=== PATIENT | male | born 1965 | race Caucasian/White ===

== ENCOUNTER → 2017-12-24 | Outpatient (CLI) | payer OTHER ==
--- NOTE | 2017-12-24 13:16 | CONS ---
CONSULTATION DATE OF SERVICE: 12/24/2017 A 52-year-old gentleman had been evaluated in the sleep center for possible obstructive sleep apnea-hypopnea syndrome. HISTORY OF PRESENT ILLNESS/SLEEP WAKE EVALUATION: Patient sleep schedule from 10 p.m. to 8 a.m. basically 7 days a week. No problems with falling asleep, although he has TV in bedroom. He sleeps in different positions with his with loud snoring and witnessed episodes of stopped breathing during the sleep. Awakening from sleep with gasping for air up to 2 times with 2 episodes of nocturia. He also has positive history of jerking movements while he fell asleep. No history of hypnagogic hallucinations, sleep paralysis or cataplexy. During the day, patient wakes up tired, feels sleepy, has difficulties to pay attention, has problem with memory, concentration, irritability, depression. [place] Sleepiness Scale significantly increased to 11. PAST MEDICAL HISTORY: Positive for hypothyroidism, back problems, nasal polyps in the past, not recently. PAST SURGICAL HISTORY: Left shoulder surgery, left low leg surgery, 2 hernia surgeries. MEDICATIONS: Levothyroxine. SOCIAL HISTORY: Negative for smoking or using alcohol. FAMILY HISTORY: Heart problems, stroke, sinus problems, snoring, thyroid problems. REVIEW OF SYSTEMS: Awakenings from sleep, feeling sleepy and tired during the day. No fevers. No double vision. No recent chest pain. No shortness of breath. No abdominal pain. No bleeding episodes. No blood in urine. No seizure episodes. PHYSICAL EXAM: During physical exam, gentleman without distress. VITAL SIGNS: BP 129/81, HR 64, RR 16, height 5 feet 11 inches, weight 216, BMI 30.1, temperature 98.1, oxygen saturation room air 96%. HEENT: PERRLA, EOMI. Oropharynx moderately low position of soft palate. A small oropharyngeal air space. Slight restriction of nasal breathing. NECK: Supple, no JVD. Thyroid is not palpable. LUNGS: Clear to percussion and to auscultation. Good air exchange. No wheezing or rhonchi. HEART: S1, S2 regular. No murmurs, gallops, or rubs. ABDOMEN: Slightly obese. EXTREMITIES: No clubbing or cyanosis. PHYSICIAN IN PRIVATE PRACTICE: Awake, alert, and oriented X3. Cranial nerves 2 to 7 intact. There is no fasciculation or atrophy noted. No focal deficits observed. IMPRESSION: 1. Snoring, witnessed episodes of stopped breathing during the sleep, small oropharyngeal air space, wide neck 16-1/2 inches, obstructive sleep apnea-hypopnea syndrome. 2. Mild obesity, body mass index 30.1. 3. Hypothyroidism. 4. Back problems. 5. Status post 2 hernia repairs. 6. Status post left shoulder surgery. 7. Status post left lower leg surgery. 8. History of nasal polyps in the past, not recently. PLAN: 1. Polysomnography for evaluation of patient's breathing during sleep. 2. CPAP/BiPAP titration if sleep study confirms obstructive sleep apnea-hypopnea syndrome. 3. Preferable position during sleep on the side. 4. No driving if patient feels any sleepiness. Patient is aware of civil and criminal liability for unsafe driving. 5. I will see patient for follow up visit to explain results of testing and following plan. Thank you very much for referring this patient for consultation. Sincerely, Pierre Suero MD, PhD, FAASM Diplomat of [employer] Insurance Verifier of [facility] [place] MMODL / ALFONSON: [id number] /
== END | disposition home or self-care (01) ==
LOC: SLEEP 11:41
PROVIDERS: ATTEND Internal Medicine
DX: G47.33 Obstructive sleep apnea (adult) (pediatric) (principal); E66.9 Obesity, unspecified; E03.9 Hypothyroidism, unspecified; M54.9 Dorsalgia, unspecified; Z98.890 Other specified postprocedural states; Z79.899 Other long term (current) drug therapy; Z68.30 Body mass index [BMI] 30.0-30.9, adult; Z87.09 Personal history of other diseases of the respiratory system
CPT/HCPCS: 99211